=== PATIENT | female | born 1985 | race African-American/Black ===

== ENCOUNTER 2019-07-16 19:07 | Emergency (ER) | payer OTHER ==
[~2019-07-16] VITALS: Ht 160 cm; Wt 90.0 kg
[2019-07-16] MEDS ORDERED: SODIUM CHLORIDE 0.9% 1,000 ML IV ONE (21:55)
[2019-07-16] MEDS ORDERED: KETOROLAC 15MG/ML VIAL IV ONE (22:30)
[2019-07-16 22:49] LABS: CLARITY URINE CLEAR (CLEAR); COLOR URINE YELLOW (YELLOW); KETONES URINE NEGATIVE (NEGATIVE); LEUKOCYTE ESTERASE URINE NEGATIVE (NEGATIVE); NITRITE URINE NEGATIVE (NEGATIVE); OCCULT BLOOD URINE NEGATIVE (NEGATIVE); PH URINE 5.5 (4.5-8.0); PROTEIN URINE NEGATIVE (NEGATIVE); SPECIFIC GRAVITY URINE 1.007 (1.005-1.030); UROBILINOGEN URINE 0.2 E.U./dL (0.2-1.0)
[2019-07-16 23:09] LABS: BASOPHILS % 0.5 % (0.0-2.0); EOSINOPHILS % 0.7 % (0.0-5.0); HEMATOCRIT. 31.9 % (36.0-48.0); HEMOGLOBIN. 10.1 g/dL (12.0-16.0); LYMPHOCYTES % 32.1 % (20.0-50.0); MEAN CORPUSCULAR HEMOGLOBIN 22.1 pg (28.0-32.0); MEAN CORPUSCULAR VOLUME 70.2 fL (81.0-99.0); MONOCYTES % 6.3 % (2.0-8.0); NEUTROPHILS % 60.4 % (40.0-76.0); PLATELET 314 x1000/uL (130-400); RED BLOOD CELL COUNT 4.54 mill/uL (4.2-5.4); RED CELL DISTRIBUTION WIDTH 18.9 % (11.6-14.6)
[2019-07-16 23:12] LABS: CHLORIDE 107 mEq/L (98-107)
[2019-07-17] MEDS ORDERED: ACETAMINOPHEN 500MG TABLET PO ONE
[2019-07-17 00:10] VITALS: BP 142/71
== END 2019-07-17 00:44 | disposition home or self-care (01) ==
LOC: ER 19:07
DX: R00.2 Palpitations (principal); R51 Headache; M79.662 Pain in left lower leg; R07.89 Other chest pain
CPT/HCPCS: 36415; 71045; 80053; 81003; 81025; 82962; 84484; 85025; 93005; 99285; J7030